=== PATIENT | female | born 1955 | race Caucasian/White ===

== ENCOUNTER 2021-01-19 10:29 | Emergency (ER) | payer BC, SELFPAY ==
[2021-01-19 10:33] VITALS: BP 129/80; PULSE 100; RESP 16; TEMP 36.7; O2SAT 99; BMI 28.3
--- NOTE | 2021-01-19 10:41 | ED.GENADULT ---
HPI - General Adult General Chief complaint: General Medical Stated complaint: QUEST TICK BITE Time Seen by Provider: 01/19/21 10:41 Source: patient Limitations: no limitations History of Present Illness HPI narrative: Patient presents with a very small circular red rash to the left lateral neck. Patient was concerned it may been a tick bite patient did not witness a tick on her neck. Patient was recently visiting [facility] from [place] for a wedding. Patient denies shortness of breath fever chills or other complaints. No past medical history of Lyme disease. no overt symptoms at this time. Related Data Previous Rx's Medication Instructions Recorded doxycycline hyclate 100 mg PO BID #20 cap 01/19/21 Allergies Allergy/AdvReac Type Severity Reaction Status Date / Time Iodinated Contrast Media Allergy Rash Verified 01/19/21 10:34 [IV Contrast Dye] Penicillins [PCN] Allergy Rash Verified 01/19/21 10:34 Review of Systems Constitutional: Constitutional: Denies chills, Denies fatigue, Denies fever(s) and Denies headache(s) ENT: Denies headache(s) Cardiovascular: Cardiovascular: Denies dyspnea Respiratory: Respiratory: Denies dyspnea Gastrointestinal: Gastrointestinal: Denies nausea and Denies vomiting Musculoskeletal: Musculoskeletal: Reports no additional musculoskeletal complaints Integumentary/Breasts: Comments: Left lateral neck circular red rash Neurologic: Denies confusion and Denies headache(s) Psychiatric: Psychiatric: Denies confusion Endocrine: Endocrine: Denies fatigue [facility] Past Medical History Attestation statement: The following information was validated with the patient. Medical History HTN (hypertension) Social History Social History Alcohol intake: never Smoked in Last 30 Days: No Use of substances other than those prescribed or required for medical reasons: No Advance Directives: No Advance Directives Information Provided: No Patient : No Physical Exam Vital Signs: Vital Signs: Last Vital Signs Temp 98.0 F 01/19/21 10:33 Pulse 100 01/19/21 10:33 Resp 16 01/19/21 10:33 BP 129/80 01/19/21 10:33 Pulse Ox 99 01/19/21 10:33 Body Mass Index 28.3 vital signs have been reviewed as normal and appeared to be correct. Blood pressure normal. Heart rate normal. Respiration rate normal. Temperature normal. Oxygen saturation normal. Appearance: Alert. Oriented X3. No acute distress. Head: Normal external exam. Normocephalic. Atraumatic. Eyes: PERRLA. EOMI. ENT: Pharynx normal. Uvula midline. Moist mucous membranes. No trismus noted. No drooling noted. No muffled voice noted. Neck: circular erythematous rash to left lateral neck approximately 1 cm in size with some central clearing CVS: Heart regular rate and rhythm no murmurs and rubs Respiratory: Breath sounds are clear to auscultation bilaterally. No accessory muscle use noted. Skin: rashes noted in the neck exam no induration or abscesses noted Extremities: No lower extremity edema. Extremities exhibit normal range of motion. Extremities nontender. Neuro: Oriented X 3. No motor deficit. No sensory deficit. patient is ambulatory without ataxia Const: General: No confusion Orientation/consciousness: No confusion Neuro: General: No confusion Course Course Course Narrative: Target lesion rash left lateral neck Lyme disease Tick bite Ring warm rash appears to be a target lesion left lateral neck unknown if there was a tick bite. Will place patient on doxycycline at this time follow-up with PCP back in [place] for Lyme titers at that time. Discharge Plan Discharge Clinical Impression: Rash and nonspecific skin eruption Patient Disposition: Home, Self-Care Instructions: Acute Rash (ED) Additional Instructions: it isrecommended you follow-up with your PCP for further Lyme testing Prescriptions: New doxycycline hyclate 100 mg capsule 100 mg PO BID Qty: 20 RF: 0
== END 2021-01-19 10:56 | disposition home or self-care (01) ==
PROVIDERS: Emergency Provider Emergency Medicine
DX: R21 Rash and other nonspecific skin eruption (principal); I10 Essential (primary) hypertension
CPT/HCPCS: 99283